=== PATIENT | female | born 2000 | race Two or more races ===

== ENCOUNTER 2021-11-29 23:46 | Inpatient (IN) ==
[2021-11-30] MEDS ORDERED: MEPERIDINE 50 MG/1 ML VIAL IV PRN (01:09)
[2021-11-30] MEDS ORDERED: BUTORPHANOL 1 MG/ML VIAL IV PRN (01:09)
[2021-11-30] MEDS ORDERED: BUTORPHANOL 2 MG/ML VIAL IV PRN (01:09)
[2021-11-30] MEDS ORDERED: ONDANSETRON 4 MG/2 ML VIAL IV PRN (01:09)
[2021-11-30 01:43] LABS: Basophils % 0.2 % (0.0-0.8); Eosinophils # 0.2 10*3/uL (0.0-0.87); Eosinophils % 2.9 % (0.00-10.9); Hematocrit 33.5 VOL% (35.7-47.0); Hemoglobin 10.6 GM/DL (12.0-16.0); Immature Granulocytes % 1.1 %; Immature Granulocytes Absolute 0.07 #; Lymphocytes # 1.6 10*3/uL (1.4-4.0); Lymphocytes % 24.6 % (21.3-54.2); Mean Corpuscular HGB Conc 31.6 GM/DL (32-36); Mean Corpuscular Volume 80.1 FL (87-102); Mean Platelet Volume 9.8 FL (9.6-12.0); Monocytes % 13.3 % (1.7-12.7); Neutrophils % 57.9 % (38.7-73.9); Platelet Count 210 T/CUMM (130-400); Red Blood Count 4.18 MC/CUMM (3.8-5.5); White Blood Count 6.3 T/CUMM (4-12)
[2021-11-30] MEDS ORDERED: AMPICILLIN INJ 2,000 MG in SODIUM CHLORIDE 0.9% 100 ML IV ONE (01:51)
[2021-11-30 01:57] LABS: Albumin 2.8 G/DL (3.4-5.0); Bilirubin,Total 0.4 MG/DL (0.20-1.00); Calcium 8.6 MG/DL (8.5-10.1); Osmolality,Calculated 270.8 MOS/KG (273-304); Potassium 3.4 MMOL/L (3.5-5.1); Total Protein 6.9 G/DL (6.4-8.2)
[2021-11-30] MEDS: LACTATED RINGERS 1,000 ML IV SCH ×3 (02:07→12:36)
[2021-11-30] MEDS ORDERED: AMPICILLIN INJ 2,000 MG in SODIUM CHLORIDE 0.9% 100 ML IV SCH (06:00)
[2021-11-30] MEDS: AMPICILLIN INJ 1,000 MG in SODIUM CHLORIDE 0.9% 100 ML IV SCH ×3 (06:25→14:08)
[2021-11-30] MEDS ORDERED: CITRIC ACID/SODIUM CITRATE 30 ML UDCUP PO ONE (09:35)
[2021-11-30] MEDS ORDERED: LACTATED RINGERS 1,000 ML IV ONE (09:35)
[2021-11-30] MEDS ORDERED: PROMETHAZINE 25 MG/1 ML VIAL IM ONE (09:35)
[2021-11-30] MEDS ORDERED: FAMOTIDINE 20 MG/2 ML VIAL IV ONE (09:35)
[2021-11-30] MEDS ORDERED: NALOXONE 0.4 MG/ML VIAL IV PRN (09:35)
[2021-11-30] MEDS ORDERED: diphenhydrAMINE 50 MG/1 ML VIAL IV PRN ×2 (09:35)
[2021-11-30] MEDS ORDERED: fentaNYL 2 MCG/ROPIV 0.2% EPID 100 ML EPIDURAL SCH (10:00)
[2021-11-30] MEDS ORDERED: LACTATED RINGERS 1,000 ML IV SCH (10:00)
[2021-11-30] MEDS ORDERED: OXYTOCIN/LR 20 UNIT/1,000 ML BAG IV SCH (10:00)
[2021-11-30] MEDS ORDERED: ePHEDrine 50 MG/ML VIAL ONE (11:57)
[2021-11-30] MEDS ORDERED: ePHEDrine 50 MG/ML VIAL IV PRN (12:07)
[2021-11-30] MEDS ORDERED: ACETAMINOPHEN 500 MG TABLET PO ONE (12:19)
[2021-11-30] MEDS ORDERED: SODIUM CHLORIDE 0.9% 0 ML IV ONE (15:03)
[2021-11-30] MEDS ORDERED: miSOPROStoL 200 MCG TABLET ONE (15:03)
[2021-11-30] MEDS ORDERED: OXYTOCIN/LR 20 UNIT/1,000 ML BAG IV ONE ×2 (15:03→19:06)
[2021-11-30] MEDS ORDERED: TRANEXAMIC ACID 1,000 MG/10 ML VIAL ONE (15:03)
[2021-11-30] MEDS ORDERED: METHYLERGONOVINE 0.2 MG/1 ML AMP ONE (15:04)
[2021-11-30] MEDS ORDERED: CARBOPROST TROMETHAMINE 250 MCG/ML AMP IM ONE (15:04)
[2021-11-30 16:54] LABS: Cord Venous Blood HCO3 21.2 MMOL/L; Cord Venous Blood PCO2 39.5 MMHG; Cord Venous Blood PO2 26.4 MMHG
[2021-11-30 16:59] LABS: Bilirubin,Urine Negative (Negative); Blood, Urine Negative (Negative); Glucose,Urine (UA) Negative (Negative); Ketones,Urine 5 mg/dL (Negative); Mucus,Urine Occasional /LPF (Occasional); Nitrite,Urine Negative (Negative); Protein,Urine Negative; RBC,Urine 2 /HPF (0-4); Urine Appearance CLEAR (Clear); Urine Color Yellow (Yellow); Urine Specific Gravity 1.011 (1.001-1.035); Urine Urobilinogen < 2.0 EU/DL (<2.0)
[2021-11-30] MEDS: BUTALBITAL/ACETAMIN/CAFFEINE 50-325-40 MG TABLET PO SCH (17:41)
[2021-11-30] MEDS ORDERED: MEASLES/MUMPS/RUBELLA VACCINE 0.5 ML VIAL SUBCUT ONE (19:06)
[2021-11-30] MEDS ORDERED: WITCH HAZEL PADS 100/JAR TOP PRN (19:06)
[2021-11-30] MEDS ORDERED: oxyCODONE/ACETAMINOPHEN 5-325 MG TABLET PO PRN ×2 (19:06)
[2021-11-30] MEDS ORDERED: ACETAMINOPHEN 325 MG TABLET PO PRN (19:06)
[2021-11-30] MEDS ORDERED: DIPH/TET/ACEL PERT BOOSTER VACCINE 0.5 ML VIAL IM ONE (19:06)
[2021-11-30] MEDS ORDERED: HYDROCORTISONE 2.5% RECTAL CREAM 30 GM TUBE TOP PRN (19:06)
[2021-11-30] MEDS ORDERED: RHO(D) IMMUNE GLOBULIN 300 MCG SYRINGE IM ONE (19:06)
[2021-11-30] MEDS ORDERED: BISACODYL 10 MG SUPP RECTAL PRN (19:06)
[2021-11-30] MEDS ORDERED: BENZOCAINE 20%/MENTHOL 0.5% SPRAY 56 GM CAN TOP PRN (19:06)
[2021-11-30] MEDS ORDERED: LANOLIN 50% CREAM 0.3 OZ TUBE TOP PRN (19:06)
[2021-11-30] MEDS: IBUPROFEN 800 MG TABLET PO PRN (19:59)
[2021-12-01] MEDS: DOCUSATE SODIUM 100 MG CAPSULE PO SCH ×3 (00:06→22:50)
[2021-12-01] MEDS: BUTALBITAL/ACETAMIN/CAFFEINE 50-325-40 MG TABLET PO SCH ×3 (00:07→11:23)
[2021-12-01 05:30] LABS: Basophils % 0.1 % (0.0-0.8); Eosinophils # 0.2 10*3/uL (0.0-0.87); Eosinophils % 2.1 % (0.00-10.9); Hematocrit 34.1 VOL% (35.7-47.0); Hemoglobin 10.8 GM/DL (12.0-16.0); Immature Granulocytes % 0.5 %; Immature Granulocytes Absolute 0.04 #; Lymphocytes # 1.9 10*3/uL (1.4-4.0); Lymphocytes % 22.5 % (21.3-54.2); Mean Corpuscular HGB Conc 31.7 GM/DL (32-36); Mean Corpuscular Volume 80.4 FL (87-102); Mean Platelet Volume 10.4 FL (9.6-12.0); Monocytes % 9.8 % (1.7-12.7); Platelet Count 174 T/CUMM (130-400); Red Blood Count 4.24 MC/CUMM (3.8-5.5); Red Cell Distribution Width 13.9 % (9.3-17.3); White Blood Count 8.5 T/CUMM (4-12)
[2021-12-01] MEDS: IBUPROFEN 800 MG TABLET PO PRN (16:35)
[2021-12-02] MEDS: IBUPROFEN 800 MG TABLET PO PRN (10:05)
[2021-12-02] MEDS: DOCUSATE SODIUM 100 MG CAPSULE PO SCH (10:05)
== END 2021-12-02 19:10 | disposition home or self-care (01) | DRG 805 ==
LOC: N.LD 23:46
PROVIDERS: ADMIT Obstetrics & Gynecology; ATTEND Obstetrics & Gynecology